=== PATIENT | male | born 1950 | race Caucasian/White ===

== ENCOUNTER 2017-06-11 06:41 | Day surgery (SDC) | payer MEDICARE ==
[2017-06-11] MEDS ORDERED: DIPRIVAN 200 MG/20 ML IV ONE (06:42)
[2017-06-11] MEDS ORDERED: Lactated Ringers 1,000 ML IV SCH ×2 (07:30→08:00)
[2017-06-11] MEDS ORDERED: Lactated Ringers 1,000 ML IV ONE (09:05)
[2017-06-11 09:57] VITALS: O2SAT 100
[2017-06-11 11:24] VITALS: BP 142/84; PULSE 54
--- NOTE | 2017-06-11 12:56 | OP ---
SURGERY DATE/TIME: 06/11/2017 0838 PREOPERATIVE DIAGNOSIS: Pancolitis. POSTOPERATIVE DIAGNOSES: 1) Pancolitis. 2) Ileitis 3) Sigmoid polyp. PROCEDURES: 1) Colonoscopy to terminal ileum. 2) Biopsy of terminal ileum. 3) Multiple colon biopsies. 4) Sigmoid colon polypectomy with hot snare. SURGEON: Ayush Lenz M.D. ANESTHESIA: [facility] [place] SPECIMEN: 1) Terminal ileum biopsy. 2) Cecal biopsy. 3) Right colon biopsy. 4) Transverse colon biopsy. 5) Left colon biopsy. 6) Sigmoid colon biopsy. 7) Sigmoid polyp. 8) Rectal biopsy. ESTIMATED BLOOD LOSS: Less than 10 cc. COMPLICATIONS: None. FINDINGS: Diffuse mild colitis, ileitis, small 3 mm sigmoid polyp. PATIENT PRESENTATION: This 67 year-old male presented with multiple episodes of abdominal pain and diarrhea with some blood in it that improved with treatment with Cipro and Flagyl. He had about three episodes in the last few months. He has been feeling well after his last course of antibiotics. The diarrhea has improved. After informed consent the patient wished to proceed with colonoscopy to evaluate his colitis. DESCRIPTION OF PROCEDURE: The patient was brought to the endoscopy suite. He was placed in left lateral decubitus position. Rectal exam was performed with no obvious abnormality. The scope was advanced into the rectum. The scope was slowly advanced throughout the colon until the appendiceal orifice was visualized. The ileocecal valve was also visualized. The ileocecal valve was then intubated and the terminal ileum evaluated. Biopsy was performed in the terminal ileum. The terminal ileum had mild ileitis. The scope was brought back into the cecum. The cecum was also inflamed. The entire colon had mild colitis so biopsies were performed in each section. Cold forceps biopsies were performed of the cecum. The scope was withdrawn to the right colon. Cold forceps biopsy performed in the right colon. The scope withdrawn to the transverse colon and again biopsies were performed. The scope was withdrawn to the left colon and biopsies were performed. The scope was withdrawn to the sigmoid and biopsies were performed. There was a 3 mm semi-pedunculated polyp in the sigmoid colon that was removed in entirety with hot snare this was sent separately. The scope was then withdrawn to the rectum and biopsies were performed. The scope was retroflexed in the rectum and the rectum was desufflated and the scope withdrawn. The entire colon had mild colitis that was pretty much even throughout the entire colon. The patient was taken to recovery in stable condition with plans to follow up with final pathology. The patient will also be put on Asacol for treatment of his colitis.
== END 2017-06-11 11:00 | disposition home or self-care (01) ==
LOC: SDC 06:41
PROVIDERS: ATTEND Surgery
PROC: 0DBB8ZX Excision of Ileum, Via Natural or Artificial Opening Endoscopic, Diagnostic (ICD-10-PCS; principal; 2017-06-11)
PROC: 0DBN8ZX Excision of Sigmoid Colon, Via Natural or Artificial Opening Endoscopic, Diagnostic (ICD-10-PCS; 2017-06-11)
PROC: 0DBH8ZX Excision of Cecum, Via Natural or Artificial Opening Endoscopic, Diagnostic (ICD-10-PCS; 2017-06-11)
PROC: 0DBL8ZX Excision of Transverse Colon, Via Natural or Artificial Opening Endoscopic, Diagnostic (ICD-10-PCS; 2017-06-11)
PROC: 0DBF8ZX Excision of Right Large Intestine, Via Natural or Artificial Opening Endoscopic, Diagnostic (ICD-10-PCS; 2017-06-11)
PROC: 0DBG8ZX Excision of Left Large Intestine, Via Natural or Artificial Opening Endoscopic, Diagnostic (ICD-10-PCS; 2017-06-11)
DX: K52.89 Other specified noninfective gastroenteritis and colitis (principal); K52.9 Noninfective gastroenteritis and colitis, unspecified; K63.5 Polyp of colon
CPT/HCPCS: 00810; 36415; 82962; 88305; 88313; 93005; J2704